=== PATIENT | male | born 1955 | race African-American/Black ===

== ENCOUNTER 2017-03-04 13:47 | Emergency (ER) | payer OTHER ==
[2017-03-04 13:47] VITALS: BP 138/80
[~2017-03-04 13:47] MED LIST: ASPI81TA9 PO; CYCL5TAB PO; HYDR-971 PO; LAMO100T PO; LISI-334 PO; PHEN100C PO; SIMV20TA3 PO
== END 2017-03-04 14:50 | disposition home or self-care (01) ==
LOC: ER 13:47
DX: J06.9 Acute upper respiratory infection, unspecified (principal)
CPT/HCPCS: 99281

== ENCOUNTER 2018-04-14 16:22 | Emergency (ER) | payer OTHER ==
[~2018-04-14] VITALS: Ht 167.6 cm; Wt 69.9 kg
[~2018-04-14 16:22] MED LIST changes: +ASPI-612 PO; -ASPI81TA9 PO
--- NOTE | 2018-04-14 18:17 | PHYS DOC ---
Past History Past Medical History: Seizure Past Surgical History: No Surgical History Smoking: Cigar Alcohol Use: Occasionally Drug Use: None Adult General Chief Complaint Chief Complaint: COUGH HPI HPI Patient is a 62 year old male who presents with complaint of persistent cough. Patient states his symptoms are approximately 2 days ago. Patient states that he has had productive cough of yellowish sputum. Patient denies any history of chronic lung disease or heart disease. The patient has had no associated fevers. Patient states that he has had slight chest discomfort only with coughing but states he has no chest pain at rest. Patient states he's been taking Zyrtec and Benadryl which has offered slight improvement in symptoms. Patient denies any shortness of breath currently at rest. Patient states that he primarily feels congestion in his upper airways at this time. Review of Systems Review of Systems Constitutional: Denies fever or chills [] Eyes: Denies change in visual acuity, redness, or eye pain [] HENT: Nasal congestion, sore throat[] Respiratory: Productive cough, denies shortness of breath[] Cardiovascular: Denies substernal chest pain or edema[] GI: Denies abdominal pain, nausea, vomiting, bloody stools or diarrhea [] : Denies dysuria or hematuria [] Musculoskeletal: Denies back pain or joint pain [] Integument: Denies rash or skin lesions [] Neurologic: Denies headache, focal weakness or sensory changes [] All other systems were reviewed and found to be within normal limits, except as documented in this note. Allergies Allergies Allergies Coded Allergies Type Severity Reaction Last Updated Verified No Known Drug Allergies 01/03/17 No Physical Exam Physical Exam Constitutional: Alert, afebrile, no acute distress. [] HENT: Normocephalic, atraumatic, bilateral external ears normal, oropharynx erythematous, posterior pharyngeal cobblestoning present, no oral exudates, boggy nasal mucosa. [] Eyes: PERRLA, EOMI, conjunctiva normal, no discharge. [] Neck: Normal range of motion, no tenderness, supple, no stridor. [] Cardiovascular:Heart rate regular rhythm, no murmur [] Lungs & Thorax: Bilateral breath sounds clear to auscultation [] Abdomen: Bowel sounds normal, soft, no tenderness, no masses, no pulsatile masses. [] Skin: Warm, dry, no erythema, no rash. [] Back: No tenderness, no CVA tenderness. [] Extremities: No tenderness, no cyanosis, no clubbing, ROM intact, no edema. [] Neurologic: Alert and oriented X 3, normal motor function, normal sensory function, no focal deficits noted. [] EKG EKG Interpreted by me: Heart rate 58, sinus rhythm, prolonged IN interval, right bundle branch block, no acute ST elevations or depressions[] Radiology/Procedures Radiology/Procedures Two-view chest x-ray interpreted by me: Small right lower lobe infiltrate, no effusions, normal cardiac silhouette[] Course & Med Decision Making Course & Med Decision Making Pertinent Labs and Imaging studies reviewed. (See chart for details) X-ray findings concerning for pneumonia. The patient will be started on oral Levaquin for treatment. Patient noted to have abnormal EKG, however patient displays no anginal equivalents at this time including substernal chest pain or shortness of breath. This is likely an old finding, however I do recommend that the patient be followed up in the next 2-3 days by cardiology for reevaluation and outpatient cardiac workup. Patient will be continued on 5 day course of Levaquin. Advised return emergency department for any worsening symptoms. Patient voiced understanding and in agreement with treatment plan. Dragon Disclaimer Dragon Disclaimer This electronic medical record was generated, in whole or in part, using a voice recognition dictation system. Departure Departure: Impression: Primary Impression: Pneumonia Additional Impression: Abnormal EKG Disposition: 01 HOME, SELF-CARE Condition: STABLE Referrals: ANTONIA SIMPSON MD (PCP) TODD CAMPOS MD Patient Instructions: Electrocardiography, [id number], Pneumonia, Adult Additional Instructions: Call the office of Dr. Campos tomorrow to schedule an appointment in the next 2-3 days for outpatient cardiac evaluation. You may use Flonase nasal spray which is available [id number] for treatment of chronic nasal congestion. Return to the emergency department for any worsening symptoms. Scripts Levofloxacin (LEVAQUIN) 750 Mg Tablet 1 TAB PO DAILY, #4 TAB Start your first dose tomorrow, 04/16/18, at dinner time. Prov: IDA DE LA CRUZ MD 04/14/18 Problem Qualifiers Primary Impression: Pneumonia Pneumonia type: due to unspecified organism Laterality: right Lung location : lower lobe of lung Qualified Codes: J18.1 - Lobar pneumonia, unspecified organism IDA DE LA CRUZ MD April 14, 2018 18:17
--- NOTE | 2018-04-14 18:40 | EKG ---
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
[2018-04-14 18:50] VITALS: BP 142/92
[2018-04-14] MEDS ORDERED: levoFLOXacin 750 MG TABLET PO STA (18:58)
[2018-04-14] MEDS ORDERED: LEVO750T31 PO (19:03)
--- NOTE | 2018-04-14 22:58 | RAD ---
PA and lateral chest radiographs 04/14/2018 CLINICAL HISTORY: Cough for 2 days. PA and lateral digital radiographs of the chest were obtained. Comparison study is dated 07/18/2013. The cardiac silhouette is normal in size. The thoracic aorta is mildly tortuous. No acute pulmonary infiltrate is seen. No pleural effusion or pneumothorax is noted. Degenerative changes are seen involving the thoracic spine. IMPRESSION: No acute abnormality is seen. Electronically signed by: Markell Dickson MD (04/14/2018 10:55 PM) [facility]
== END 2018-04-14 19:15 | disposition home or self-care (01) ==
LOC: ER 16:22
DX: J18.1 Lobar pneumonia, unspecified organism (principal); R94.31 Abnormal electrocardiogram [ECG] [EKG]; F17.210 Nicotine dependence, cigarettes, uncomplicated
CPT/HCPCS: 71046; 87070; 87880; 93005; 99285-25

== ENCOUNTER 2018-04-19 04:27 | Emergency (ER) | payer OTHER ==
[~2018-04-19] VITALS: Ht 170.2 cm; Wt 71.2 kg
[~2018-04-19 04:27] MED LIST changes: +LEVO750T31 PO
[2018-04-19] MEDS ORDERED: LORazepam 2 MG/ML VIAL ONE (04:40)
--- NOTE | 2018-04-19 04:40 | ED.ADGEN ---
Past History Past Medical History: High Cholesterol, Hypertension, Pneumonia, Seizure Past Surgical History: No Surgical History Smoking: Cigar Alcohol Use: Occasionally Drug Use: None Adult General Chief Complaint Chief Complaint " Pt. answer question with shaking head yes or no" (Pt normally a verbal post SZ) HPI HPI Patient is a 62 year old male who presents with above hx and complaints of Tonic Clonic seizure x 4 tonight. Pt has hx of seizure disorder and take s Dilantin. Patient has not had a seizure for 2 years. Patient reportedly compliant with his Dilantin usage. Patient reportedly received upsetting nose on a family member before onset of seizures. No recent travel. No history of ill contacts. Patient moves all extremities on command. Patient appears postictal. Patient moves all extremities on request. No complaints of pain. Pt. recently seen in ED 04/14/18 and Tx. for pneumonia. Pt. follow with Dr. Cain. Review of Systems Review of Systems Constitutional:Hx. of fever or chills [] Eyes: Denies change in visual acuity, redness, or eye pain [] HENT: Denies nasal congestion or sore throat [] Respiratory: Hx cough or shortness of breath [and pneumonia Cardiovascular: No additional information not addressed in HPI [] GI: Denies abdominal pain, nausea, vomiting, bloody stools or diarrhea [] : Denies dysuria or hematuria [] Musculoskeletal: Denies back pain or joint pain [] Integument: Denies rash or skin lesions [] Neurologic: Denies headache, focal weakness or sensory changes [] Endocrine: Denies polyuria or polydipsia [] All other systems were reviewed and found to be within normal limits, except as documented in this note. Family History Family History Noncontributory Current Medications Current Medications Current Medications Medications (Trade) Dose Ordered Sig/Smita Start Time Stop Time Status Last Admin Dose Admin Lactated Ringer's 1,000 ml @ 1,000 mls/hr Q1H 04/19/18 05:00 04/19/18 05:59 DC 04/19/18 04:59 1,000 MLS/HR Lorazepam (Ativan) 2 mg STK-MED ONCE 04/19/18 04:40 04/19/18 04:41 DC Phenytoin Sodium (Dilantin) 400 mg 1X ONCE 04/19/18 06:00 04/19/18 06:17 DC 04/19/18 06:03 400 MG See nursing for home meds Allergies Allergies Allergies Coded Allergies Type Severity Reaction Last Updated Verified No Known Drug Allergies 01/03/17 No Physical Exam Physical Exam Constitutional:, no acute distress, non-toxic appearance. [] HENT: Normocephalic, atraumatic, bilateral external ears normal, oropharynx moist, no oral exudates, nose normal. [] Eyes: PERRLA, EOMI, conjunctiva normal, no discharge. [] Neck: Normal range of motion, no tenderness, supple, no stridor. [] Cardiovascular. : Tachycardia Heart rate regular rhythm, no murmur [] Lungs & Thorax: Bilateral breath sounds equal apexes with crackles on bilateral. base on auscultation [] Abdomen: Bowel sounds normal, soft, no tenderness, no masses, no pulsatile masses. [] Skin: Warm, dry, no erythema, no rash. [] Back: No tenderness, no CVA tenderness. [] Extremities: No tenderness, no cyanosis, no clubbing, ROM intact, no edema. [] Neurologic: Alert and oriented X 3, normal motor function, normal sensory function, no focal deficits noted. []DTRs +2 patella and brachial Psychologic: Affect anxious, judgement normal, mood normal. [] Current Patient Data Vital Signs Vital Signs Date Time Temp Pulse Resp B/P (MAP) Pulse Ox O2 Delivery O2 Flow Rate FiO2 04/19/18 06:00 71 18 136/84 (101) 100 Room Air 04/19/18 04:30 99.0 Lab Results Laboratory Tests Test 04/19/18 04:45 White Blood Count 4.0 x10^3/uL (4.0-11.0) Red Blood Count 4.49 x10^6/uL (4.30-5.70) Hemoglobin 14.2 g/dL (13.0-17.5) Hematocrit 40.9 % (39.0-53.0) Mean Corpuscular Volume 91 fL (79-100) Mean Corpuscular Hemoglobin 32 pg (25-35) Mean Corpuscular Hemoglobin Concent 35 g/dL (31-37) Red Cell Distribution Width 13.9 % (11.5-14.5) Platelet Count 298 x10^3/uL (140-400) Neutrophils (%) (Auto) 46 % (31-73) Lymphocytes (%) (Auto) 31 % (24-48) Monocytes (%) (Auto) 19 % (0-9) H Eosinophils (%) (Auto) 3 % (0-3) Basophils (%) (Auto) 1 % (0-3) Neutrophils # (Auto) 1.8 x10^3uL (1.8-7.7) Lymphocytes # (Auto) 1.3 x10^3/uL (1.0-4.8) Monocytes # (Auto) 0.8 x10^3/uL (0.0-1.1) Eosinophils # (Auto) 0.1 x10^3/uL (0.0-0.7) Basophils # (Auto) 0.0 x10^3/uL (0.0-0.2) Segmented Neutrophils % 45 % (35-66) Band Neutrophils % 2 % (0-9) Lymphocytes % 35 % (24-48) Monocytes % 17 % (0-10) H Eosinophils % 1 % (0-5) Platelet Estimate Adequate (ADEQUATE) Prothrombin Time 10.7 SEC (9.4-11.4) Prothrombin Time INR 1.0 (0.9-1.1) PTT 22 SEC (23-33) L D-Dimer (Zonia) 0.33 mg/L (0.00-0.50) Sodium Level 140 mmol/L (136-145) Potassium Level 3.8 mmol/L (3.5-5.1) Chloride Level 103 mmol/L (98-107) Carbon Dioxide Level 23 mmol/L (21-32) Anion Gap 14 (6-14) Blood Urea Nitrogen 20 mg/dL (8-26) Creatinine 1.1 mg/dL (0.7-1.3) Estimated GFR (Cockcroft-Gault) 82.3 Glucose Level 140 mg/dL (70-99) H Calcium Level 8.5 mg/dL (8.5-10.1) Magnesium Level 2.0 mg/dL (1.8-2.4) Total Bilirubin 0.2 mg/dL (0.2-1.0) Direct Bilirubin 0.1 mg/dL (0.0-0.2) Aspartate Amino Transferase (AST) 34 U/L (15-37) Alanine Aminotransferase (ALT) 52 U/L (16-63) Alkaline Phosphatase 115 U/L (46-116) Creatine Kinase 182 U/L (39-308) Creatine Kinase MB (Mass) 1.4 ng/mL (0.0-3.6) Creatine Kinase MB Relative Index 0.8 % (0-4) Troponin I Quantitative < 0.017 ng/mL (0-0.055) ZC-Fno-R-Type Natriuretic Peptide 28 pg/mL (0-124) Total Protein 7.0 g/dL (6.4-8.2) Albumin 3.5 g/dL (3.4-5.0) Thyroid Stimulating Hormone (TSH) 1.623 uIU/mL (0.358-3.740) Phenytoin (Dilantin) Level 8.2 mcg/mL (10.0-20.0) L Phenytoin Last Dose Date 10/05/11 Phenytoin Last Dose Time 1111 Ethyl Alcohol Level < 10 mg/dL (0-10) EKG EKG My interpretation of EKG shows a sinus rhythm at 80 bpm. He does have frequent premature ventricular complexes. His left axis deviation and a fascicular block. [] Radiology/Procedures Radiology/Procedures My interpretation of x-ray shows no large infiltrate. No acute cardiopulmonary findings.[] My interpretation of CT head shows no shift, mass, edema, bleed, or fracture Course & Med Decision Making Course & Med Decision Making Pertinent Labs and Imaging studies reviewed. (See chart for details). Pt. used to take 400 of Dilantin , but reduced dosages to 300. Pt. to again increase Dilantin to 400 mg at night. Patient return if any concerns. is comfortable with discharge patient is comfortable discharge. No driving or hazardous activity until released by primary care. Keep follow up with primary and neurology. Review all labs, ekgs and x-rays completed this visit with neurology and primary. Return if any concerns. [] Final Impression Final Impression 1. Tonic-clonic seizure 2. History of seizure disorder[] 3. HTN 4. Recent Dx Pneumonia 04/14/18 5. Fever- Suspect Viral Syndrome 6. Sub-Therapeutic Dilantin level Dragon Disclaimer Dragon Disclaimer This electronic medical record was generated, in whole or in part, using a voice recognition dictation system. JUAN GIRALDO MD April 19, 2018 04:39
[2018-04-19] MEDS ORDERED: LORazepam 2 MG/ML VIAL IV ONE (05:00)
[2018-04-19] MEDS ORDERED: IV RINGERS SOLUTION,LACTATED 1,000 ML IV SCH (05:00)
[2018-04-19 05:08] LABS: BASO % 1 % (0-3); EOS # 0.1 x10^3/uL (0.0-0.7); EOS % 3 % (0-3); HEMATOCRIT 40.9 % (39.0-53.0); HEMOGLOBIN 14.2 g/dL (13.0-17.5); LYMPH # 1.3 x10^3/uL (1.0-4.8); LYMPH % 31 % (24-48); MEAN CORPUSCULAR HEMOGLOBIN 32 pg (25-35); MEAN CORPUSCULAR HGB CONC 35 g/dL (31-37); MEAN CORPUSCULAR VOLUME 91 fL (79-100); MONO # 0.8 x10^3/uL (0.0-1.1); MONO % 19 % (0-9); NEUT # 1.8 x10^3uL (1.8-7.7); NEUT % 46 % (31-73); PLATELET COUNT 298 x10^3/uL (140-400); RED BLOOD COUNT 4.49 x10^6/uL (4.30-5.70); RED CELL DISTRIBUTION WIDTH 13.9 % (11.5-14.5)
--- NOTE | 2018-04-19 05:17 | RAD ---
CT head without contrast TECHNIQUE: [address] imaging skull base to vertex. HISTORY: Seizures. COMPARISON: CT head November 13, 2014. FINDINGS: No intracranial hemorrhage, mass, hydrocephalus, extra-axial fluid collections or new infarction. Chronic right thalamus and basal ganglia hypodense small lacunar infarcts are stable. No acute ischemic changes. Occipital scalp linear scar stable. Orbits, mastoids and bones are unremarkable. IMPRESSION: No acute intracranial CT abnormality. Exposure: One or more of the following individualized dose reduction techniques were utilized for this examination: 1. Automated exposure control 2. Adjustment of the mA and/or kV according to patient size 3. Use of iterative reconstruction technique Electronically signed by: Gary Boston MD (04/19/2018 5:13 AM) [id number]
[2018-04-19 05:22] LABS: ALBUMIN 3.5 g/dL (3.4-5.0); ALK PHOS 115 U/L (46-116); ALT (SGPT) 52 U/L (16-63); ANION GAP 14 (6-14); AST (SGOT) 34 U/L (15-37); BLOOD UREA NITROGEN 20 mg/dL (8-26); CALCIUM 8.5 mg/dL (8.5-10.1); CARBON DIOXIDE 23 mmol/L (21-32); CHLORIDE 103 mmol/L (98-107); CREATININE 1.1 mg/dL (0.7-1.3); DIRECT BILIRUBIN 0.1 mg/dL (0.0-0.2); GFR 82.3; GLUCOSE 140 mg/dL (70-99); PHENY 8.2 mcg/mL (10.0-20.0); POTASSIUM 3.8 mmol/L (3.5-5.1); SODIUM 140 mmol/L (136-145); TOTAL BILIRUBIN 0.2 mg/dL (0.2-1.0)
[2018-04-19 05:53] LABS: % BANDS 2 % (0-9); % EOS 1 % (0-5); % LYMPHS 35 % (24-48); % MONOS 17 % (0-10); % SEGS 45 % (35-66); PLT ESTIMATE ADEQUATE (ADEQUATE)
[2018-04-19 06:00] VITALS: BP 136/84
[2018-04-19] MEDS ORDERED: PHENYTOIN SODIUM EXTENDED 100 MG CAPSULE PO ONE (06:00)
--- NOTE | 2018-04-19 06:36 | RAD ---
AP chest x-ray COMPARISON: Chest x-ray April 14, 2018. HISTORY: Seizures. FINDINGS: Heart size normal. Tortuosity/ectasia of the thoracic aorta is radiographically stable. No pneumothorax, pulmonary opacities or pleural effusions. Resting disc osteophytes. IMPRESSION: No acute process. Stable exam. Electronically signed by: Gary Boston MD (04/19/2018 6:33 AM) [facility]
== END 2018-04-19 06:08 | disposition home or self-care (01) ==
LOC: ER 04:27
DX: G40.909 Epilepsy, unspecified, not intractable, without status epilepticus (principal); I10 Essential (primary) hypertension; E78.00 Pure hypercholesterolemia, unspecified; F17.210 Nicotine dependence, cigarettes, uncomplicated; R79.1 Abnormal coagulation profile
CPT/HCPCS: 36415; 70450; 71045; 80048; 80076; 80185; 82553; 83735; 83880; 84443; 84484; 85007; 85025; 85379; 85610; 85730; 87040; 99285; G0480; J2060; J7120

== ENCOUNTER 2019-03-18 07:38 | Emergency (ER) | payer OTHER ==
[~2019-03-18] VITALS: Ht 170.2 cm; Wt 68.0 kg
[~2019-03-18 07:38] MED LIST changes: +HYDR-3165 PO; -HYDR-971 PO
[2019-03-18] MEDS ORDERED: LIDOCAINE 2% VISCOUS 15 ML SOLUTION. SWSW ONE (08:00)
[2019-03-18] MEDS ORDERED: diphenhydrAMINE ORAL ELIXIR 12.5 MG/5 ML ML PO ONE ×2 (08:00→08:30)
[2019-03-18] MEDS ORDERED: MAG HYDROX/AL HYDROX/SIMETH 30 ML ORAL.SUSP PO ONE (08:00)
[2019-03-18] MEDS ORDERED: AMOX500C PO (08:21)
[2019-03-18] MEDS ORDERED: PRED50TA PO (08:21)
--- NOTE | 2019-03-18 08:22 | PHYS DOC ---
Past History Past Medical History: High Cholesterol, Hypertension, Seizure Past Surgical History: Other Smoking: Cigar Additional Smoking Information: 4 CIGARS/DAY Alcohol Use: Occasionally Drug Use: None Adult General Chief Complaint Chief Complaint: SORE THROAT HPI HPI Patient is a 63-year-old male presents with worsening sore throat after eating a hot pot pie 2 days ago. Notes these had some fever and chills last night. Worse on the right side. Increased pain with swallowing. No relief with home medication. Discomfort is moderate to severe in intensity.[] Review of Systems Review of Systems Constitutional: See history of present illness[] Eyes: Denies change in visual acuity, redness, or eye pain [] HENT: Denies nasal congestion, see history of present illness[] Respiratory: Denies cough or shortness of breath [] Cardiovascular: No chest pain or palpitations[] GI: Denies abdominal pain, nausea, vomiting, bloody stools or diarrhea [] : Denies dysuria or hematuria [] Musculoskeletal: Denies back pain or joint pain [] Integument: Denies rash or skin lesions [] Neurologic: Denies headache, focal weakness or sensory changes [] Endocrine: Denies polyuria or polydipsia [] All other systems were reviewed and found to be within normal limits, except as documented in this note. Current Medications Current Medications Current Medications Medications (Trade) Dose Ordered Sig/Smita Start Time Stop Time Status Last Admin Dose Admin Al Hydroxide/Mg Hydroxide (Mylanta Plus Xs) 30 ml 1X ONCE 03/18/19 08:00 4 08:01 DC Diphenhydramine HCl (Benadryl Oral Elixir) 25 mg 1X ONCE 03/18/19 08:00 03/18/19 08:01 DC Lidocaine HCl (Viscous Lidocaine) 15 ml 1X ONCE 03/18/19 08:00 03/18/19 08:01 DC Allergies Allergies Allergies Coded Allergies Type Severity Reaction Last Updated Verified No Known Drug Allergies 01/03/17 No Physical Exam Physical Exam Constitutional: Well developed, well nourished, no acute distress, non-toxic appearance. [] HENT: Normocephalic, atraumatic, bilateral external ears normal, oropharynx moist, enlarged right sided tonsil, uvula midline, exudate is present on the tonsils,, nose normal. [] Eyes: PERRLA, EOMI, conjunctiva normal, no discharge. [] Neck: Normal range of motion, no tenderness, supple, no stridor. Anterior chain cervical lymphadenopathy [] Cardiovascular:Heart rate regular rhythm, no murmur [] Lungs & Thorax: Bilateral breath sounds clear to auscultation [] Abdomen: Bowel sounds normal, soft, no tenderness, no masses, no pulsatile masses. No hepato-or splenomegaly [] Skin: Warm, dry, no erythema, no rash. [] Back: No tenderness, no CVA tenderness. [] Extremities: No tenderness, no cyanosis, no clubbing, ROM intact, no edema. [] Neurologic: Alert and oriented X 3, normal motor function, normal sensory function, no focal deficits noted. [] Psychologic: Affect normal, judgement normal, mood normal. [] Current Patient Data Vital Signs Vital Signs Date Time Temp Pulse Resp B/P (MAP) Pulse Ox O2 Delivery O2 Flow Rate FiO2 03/18/19 07:45 98.9 66 20 98 Room Air EKG EKG [] Radiology/Procedures Radiology/Procedures [] Course & Med Decision Making Course & Med Decision Making Pertinent Labs and Imaging studies reviewed. (See chart for details) Medical decision making: There is no evidence of airway or esophageal obstruction. This appears to be pharyngitis, no evidence of peritonsillar abscess at this time. No evidence of meningitis or encephalitis.[] Dragon Disclaimer Dragon Disclaimer This electronic medical record was generated, in whole or in part, using a voice recognition dictation system. Departure Departure: Impression: Primary Impression: Exudative pharyngitis Disposition: HOME, SELF-CARE Condition: IMPROVED Referrals: ANTONIA SIMPSON MD (PCP) Follow-up within 2 days Patient Instructions: Viral and Bacterial Pharyngitis Additional Instructions: Drink plenty of fluids. Follow-up with your regular doctor. Return to the ER if worsening difficulty swallowing, or any other concerns. Scripts Prednisone (PREDNISONE) 50 Mg Tablet 1 TAB PO DAILY for INFLAMMATION, #5 TAB Prov: NAOMIE SIMON DO 03/18/19 Amoxicillin (AMOXICILLIN) 500 Mg Capsule 1 CAP PO TID for PHARYNGITIS, #30 CAP Prov: NAOMIE SIMON DO 03/18/19 NAOMIE SIMON DO Mar 18, 2019 08:22
[2019-03-18] MEDS ORDERED: LIDO:MAALOX 1:1 20 ML SINGLE DOSE. PO PRN (08:30)
[2019-03-18 08:50] VITALS: BP 146/82
== END 2019-03-18 08:50 | disposition home or self-care (01) ==
LOC: ER 07:38
DX: J02.9 Acute pharyngitis, unspecified (principal); E78.00 Pure hypercholesterolemia, unspecified; I10 Essential (primary) hypertension; F17.210 Nicotine dependence, cigarettes, uncomplicated
CPT/HCPCS: 99283

== ENCOUNTER 2021-01-11 11:36 | Emergency (ER) | payer OTHER ==
[~2021-01-11] VITALS: Ht 170.2 cm; Wt 73.0 kg
[~2021-01-11 11:36] MED LIST changes: +AMOX500C PO; -ASPI-612 PO; +ASPI-889 PO; -LAMO100T PO; +LAMO100T8 PO; -LISI-334 PO; +LISI20TA18 PO; +PRED50TA PO; +SIMV20TA18 PO; -SIMV20TA3 PO
[2021-01-11 11:40] VITALS: BP 134/82
[2021-01-11] MEDS ORDERED: KETOROLAC 15 MG/ML VIAL. IM ONE (12:45)
[2021-01-11] MEDS ORDERED: IOHEXOL 300 MG/ML 75 ML VIAL. IV ONE (12:45)
[2021-01-11] MEDS ORDERED: CYCLOBENZAPRINE 10 MG TABLET. PO ONE (12:45)
--- NOTE | 2021-01-11 12:45 | PHYS DOC ---
Past History Past Medical History: High Cholesterol, Hypertension, Seizure Past Surgical History: Other Smoking: Cigar Alcohol Use: Occasionally Drug Use: None General Adult EDM: Chief Complaint: Neck Pain HPI: HPI: Patient is a 65-year-old male who presents with left-sided neck pain and headache for 2 weeks. Patient denies any trauma or injury. Patient states that pain is worse at night when he lays down and better when he is up moving. Patient has full range of motion of neck. Patient denies dizziness. Patient reports taking Aleve at home with little relief. Patient has history of hypertension, high cholesterol, seizures. Review of Systems: Review of Systems: Constitutional: Denies fever or chills Eyes: Denies change in visual acuity HENT: Denies nasal congestion or sore throat Respiratory: Denies cough or shortness of breath Cardiovascular: Denies chest pain or edema GI: Denies abdominal pain, nausea, vomiting, bloody stools or diarrhea : Denies dysuria Musculoskeletal: Reports neck pain, denies joint pain Integument: Denies rash Neurologic: Reports headache, denies focal weakness or sensory changes Endocrine: Denies polyuria or polydipsia Lymphatic: Denies swollen glands Psychiatric: Denies depression or anxiety Current Medications: Current Meds: Current Medications Medications (Trade) Dose Ordered Sig/Smita Start Time Stop Time Status Last Admin Dose Admin Cyclobenzaprine HCl (Flexeril) 10 mg 1X ONCE 01/11/21 12:45 01/11/21 12:46 UNV Ketorolac Tromethamine (Toradol 15mg Vial) 15 mg 1X ONCE 01/11/21 12:45 01/11/21 12:46 UNV Allergies: Allergies: Allergies Coded Allergies Type Severity Reaction Last Updated Verified No Known Drug Allergies 01/03/17 No Physical Exam: PE: Constitutional: Well developed, well nourished, no acute distress, non-toxic appearance. [] HENT: Normocephalic, atraumatic, bilateral external ears normal, oropharynx moist, no oral exudates, nose normal. [] Eyes: PERRLA, EOMI, conjunctiva normal, no discharge. [] Neck: Normal range of motion, left-sided neck tenderness Cardiovascular:Heart rate regular rhythm, no murmur [] Lungs & Thorax: Bilateral breath sounds clear to auscultation [] Abdomen: Bowel sounds normal, soft, no tenderness, no masses, no pulsatile masses. [] Skin: Warm, dry, no erythema, no rash. [] Back: No tenderness, no CVA tenderness. [] Extremities: No tenderness, no cyanosis, no clubbing, ROM intact, no edema. [] Neurologic: Alert and oriented X 3, normal motor function, normal sensory function, no focal deficits noted. [] Psychologic: Affect normal, judgement normal, mood normal. [] Current Patient Data: Vital Signs: Vital Signs Date Time Temp Pulse Resp B/P (MAP) Pulse Ox O2 Delivery O2 Flow Rate FiO2 01/11/21 11:40 97.7 85 16 134/82 (99) 98 Room Air EKG: EKG: [] Radiology/Procedures: Radiology/Procedures: []EXAM: CT Head without IV contrast INDICATION: Reason: HEAD AND NECK PAIN / Spl. Instructions: / History: TECHNIQUE: Multi-detector row CT images were obtained of the head without the use of IV contrast. All CT scans performed at this facility utilize dose optimization techniques as appropriate to the exam, including the following: Automated exposure control and adjustment of the mA and/or KV according to patient size (this includes techniques or standardized protocols for targeted exams where dose is indication/reason for exam). COMPARISON: None FINDINGS: BRAIN PARENCHYMA: No evidence of acute intraparenchymal hemorrhage or infarct. No abnormal parenchymal density or mass. VENTRICLES & EXTRA-AXIAL SPACES: Ventricles are within normal limits. Basilar cisterns are patent. No pathologic extra-axial fluid collection or mass. ORBITS: Orbital contents are unremarkable. SINUSES: Visualized paranasal sinuses and mastoid air cells are clear. OSSEOUS & SOFT TISSUES: Calvarium and skull base are intact. IMPRESSION: No acute intracranial pathology. Mild soft tissue stranding in the scalp posteriorly EXAM: CT Neck with IV contrast INDICATION: Reason: HEAD AND NECK PAIN / Spl. Instructions: / History: TECHNIQUE: Multiple contiguous axial images were obtained of the neck with the use of IV contrast. Post-processing reconstructed images were obtained for interpretation. All CT scans performed at this facility utilize dose optimization techniques as appropriate to the exam, including the following: Automated exposure control and adjustment of the mA and/or KV according to patient size (this includes techniques or standardized protocols for targeted exams where dose is indication/reason for exam). IV CONTRAST: Administered COMPARISON: None FINDINGS: INTRACRANIAL STRUCTURES & ORBITS: Unremarkable. AERODIGESTIVE: The nasal cavity, nasopharynx, oral cavity, oropharynx, hypopharynx, larynx, and visualized trachea and esophagus demonstrate no masses or abnormal enhancement. CERVICAL LYMPH NODES & SOFT TISSUES: No adenopathy, soft tissue mass, or fluid collection. THYROID & SALIVARY GLANDS: Unremarkable. LUNG APICES: Clear. OSSEOUS: Disc degenerative changes at C4-C5, C5-C6 and C6-C7 are present along with lesser degenerative changes at C7-T1. Mild facet hypertrophic changes on the right at C3-C4 present. IMPRESSION: Cervical spinal degenerative changes. Otherwise unremarkable CT of the neck with no mass or adenopathy is shown. Electronically signed by: Noel Francisco MD (01/11/2021 1:24 PM) [id number] Heart Score: Risk Factors: Risk Factors: DM, Current or recent (<one month) smoker, HTN, HLP, family history of CAD, obesity. Risk Scores: Score 0 - 3: 2.5% MACE over next 6 weeks - Discharge Home Score 4 - 6: 20.3% MACE over next 6 weeks - Admit for Clinical Observation Score 7 - 10: 72.7% MACE over next 6 weeks - Early Invasive Strategies Course & Med Decision Making: Course & Med Decision Making Pertinent Labs and Imaging studies reviewed. (See chart for details) []Patient is a 65-year-old male who presents with left-sided neck pain and headache for 2 weeks. Patient denies any trauma or injury. Patient states that pain is worse at night when he lays down and better when he is up moving. Patient has full range of motion of neck. Patient denies dizziness. Patient reports taking Aleve at home with little relief. Patient has history of hypertension, high cholesterol, seizures. CT head shows No acute intracranial pathology.Mild soft tissue stranding in the scalp posteriorly.Cervical spinal degenerative changes. Otherwise unremarkable CT of the neck with no mass or adenopathy is shown. Flexeril and Toradol given Patient most likely has a muscle strain. Ibuprofen, flexeril, ice for discomfort. Dragon Disclaimer: Dragon Disclaimer: This electronic medical record was generated, in whole or in part, using a voice recognition dictation system. Departure Departure: Impression: Primary Impression: Neck muscle strain Qualified Codes: S16.1XXA - Strain of muscle, fascia and tendon at neck level, initial encounter Disposition: 01 DC HOME SELF CARE/HOMELESS Condition: STABLE Referrals: LEW BERNARDO (PCP) Patient Instructions: Muscle Strain, [id number] Additional Instructions: You were seen in the emergency room today for neck pain. The CT of your head and neck was negative for any acute abnormalities. You most likely have the muscle strain. I have prescribed you Flexeril which is a muscle relaxer to take at home. You may also take ibuprofen for discomfort. Return to the emergency room with worsening symptoms or concerns otherwise follow-up with your PCP if symptoms do not resolve. EMERGENCY DEPARTMENT GENERAL DISCHARGE INSTRUCTIONS Thank you for coming to [facility] (ED) today and trusting us with you care. We trust that you had a positivie experience in our Emergency Department. If you wish to speak to the department management, you may call the director at [phone]. YOUR FOLLOW UP INSTRUCTIONS ARE FOLLOWS: 1. Do you have a private Doctor? If you do not have a private doctor, please ask for a resource list of physicians or clinics that may be able to assist you with follow up care. 2. The Emergency Physician has interpreted your x-rays. The X-Ray specialist will also review them. If there is a change in the findings, you will be notified in 48 hours when at all possible. 3. A lab test or culture has been done, your results will be reviewed and you will be notified if you need a change in treatment. ADDITIONAL INSTRUCTIONS AND INFORMATION: 1. Your care today has been supervised by a physician who is specially trained in emergency care. Many problems require more than one evaluation for a complete diagnosis and treatment. We recommend that you schedule your follow up appointment as recommended to ensure complete treatment of you illness or injury. If you are unable to obtain follow up care and continue to have a problem, or if your condition worsens, we recommend that you return to the ED. 2. We are not able to safely determine your condition over the phone nor are we able to give sound medical advice over the phone. For these safety reasons, if you call for medical advice we will ask you to come to the ED for further evaluation. 3. If you have any questions regarding these discharge instructions please call the ED at [phone]. SAFETY INFORMATION: In the interest of safety, wellness, and injury prevention; we encourage you to wear your sealbelt, if you smoke; quite smoking, and we encourage family to use a protective helmet for bicycling and other sporting events that present an increased risk for head injury. IF YOUR SYMPTOMS WORSEN OR NEW SYMPTOMS DEVELOP, OR YOU HAVE CONCERNS ABOUT YOUR CONDITION; OR IF YOUR CONDITION WORSENS WHILE YOU ARE WAITING FOR YOUR FOLLOW UP JACEY OINTMENT; EITHER CONTACT YOUR PRIMARY CARE DOCTOR, THE PHYSICIAN WHOSE NAME AND NUMBER YOU WERE GIVEN, OR RETURN TO THE ED IMMEDIATELY. Scripts Cyclobenzaprine Hcl (CYCLOBENZAPRINE HCL) 10 Mg Tablet 1 TAB PO TID PRN PRN for PAIN, #12 TAB Prov: PERRI WOOD APRN 01/11/21 PERRI WOOD APRN Jan 11, 2021 12:45
--- NOTE | 2021-01-11 13:26 | RAD ---
EXAM: CT Head without IV contrast INDICATION: Reason: HEAD AND NECK PAIN / Spl. Instructions: / History: TECHNIQUE: Multi-detector row CT images were obtained of the head without the use of IV contrast. All CT scans performed at this facility utilize dose optimization techniques as appropriate to the exam, including the following: Automated exposure control and adjustment of the mA and/or KV according to patient size (this includes techniques or standardized protocols for targeted exams where dose is ind ication/reason for exam). COMPARISON: None FINDINGS: BRAIN PARENCHYMA: No evidence of acute intraparenchymal hemorrhage or infarct. No abnormal parenchyma l density or mass. VENTRICLES & EXTRA-AXIAL SPACES: Ventricles are within normal limits. Basilar cisterns are patent. N o pathologic extra-axial fluid collection or mass. ORBITS: Orbital contents are unremarkable. SINUSES: Visualized paranasal sinuses and mastoid air cells are clear. OSSEOUS & SOFT TISSUES: Calvarium and skull base are intact. IMPRESSION: No acute intracranial pathology. Mild soft tissue stranding in the scalp posteriorly EXAM: CT Neck with IV contrast INDICATION: Reason: HEAD AND NECK PAIN / Spl. Instructions: / History: TECHNIQUE: Multiple contiguous axial images were obtained of the neck with the use of IV contrast. Po st-processing reconstructed images were obtained for interpretation. All CT scans performed at this [facility] utilize dose optimization techniques as appropriate to the exam, including the following: Aut omated exposure control and adjustment of the mA and/or KV according to patient size (this includes t echniques or standardized protocols for targeted exams where dose is indication/reason for exam). IV CONTRAST: Administered COMPARISON: None FINDINGS: INTRACRANIAL STRUCTURES & ORBITS: Unremarkable. AERODIGESTIVE: The nasal cavity, nasopharynx, oral cavity, oropharynx, hypopharynx, larynx, and visu alized trachea and esophagus demonstrate no masses or abnormal enhancement. CERVICAL LYMPH NODES & SOFT TISSUES: No adenopathy, soft tissue mass, or fluid collection. THYROID & SALIVARY GLANDS: Unremarkable. LUNG APICES: Clear. OSSEOUS: Disc degenerative changes at C4-C5, C5-C6 and C6-C7 are present along with lesser degenerat makeda changes at C7-T1. Mild facet hypertrophic changes on the right at C3-C4 present. IMPRESSION: Cervical spinal degenerative changes. Otherwise unremarkable CT of the neck with no mass or adenopath y is shown. Electronically signed by: Noel Francisco MD (01/11/2021 1:24 PM) [id number]
[2021-01-11] MEDS ORDERED: CYCL-331 PO (13:44)
== END 2021-01-11 14:14 | disposition home or self-care (01) ==
LOC: ER 11:36
DX: S16.1XXA Strain of muscle, fascia and tendon at neck level, initial encounter (principal); R51.9 Headache, unspecified; E78.00 Pure hypercholesterolemia, unspecified; I10 Essential (primary) hypertension; F17.210 Nicotine dependence, cigarettes, uncomplicated; X58.XXXA Exposure to other specified factors, initial encounter; Y93.89 Activity, other specified; Y92.89 Other specified places as the place of occurrence of the external cause; Y99.8 Other external cause status
CPT/HCPCS: 70450; 70491; 96372; 99285; J1885; Q9967

== ENCOUNTER → 2021-02-12 | Outpatient (CLI) | payer OTHER ==
[~2021-02-12] MED LIST changes: +CYCL-331 PO
--- NOTE | 2021-02-12 10:46 | RAD ---
XR ELBOW COMPLETE_LEFT 3+VIEWS History: Reason: Left elbow injury 1 month ago, pain worse with stiffness / Spl. Instructions: / His tory: Technique: 3 views left elbow. Comparison: None. Findings: Normal alignment. No fracture. No significant elbow joint effusion. Well-corticated ossifications adj acent to the medial humeral epicondyle, likely related to prior trauma or degenerative changes. Impression: 1. No acute osseous abnormality. 2. Well-corticated ossifications adjacent to the medial humeral condyle, may relate to prior trauma or degenerative changes. Electronically signed by: Sean Pascual DO (02/12/2021 10:44 AM) [id number]
== END ==
LOC: DXRAD 10:25
PROVIDERS: ATTEND Physician Assistant Medical
DX: S59.902A Unspecified injury of left elbow, initial encounter (principal); X58.XXXA Exposure to other specified factors, initial encounter; Y93.89 Activity, other specified; Y92.89 Other specified places as the place of occurrence of the external cause; Y99.8 Other external cause status
CPT/HCPCS: 73080

== ENCOUNTER 2022-01-22 11:57 | Emergency (ER) | payer OTHER ==
[~2022-01-22] VITALS: Ht 170.2 cm; Wt 72.2 kg
[~2022-01-22 11:57] MED LIST changes: -CYCL-331 PO; +CYCL10TA19 PO
--- NOTE | 2022-01-22 12:39 | RAD ---
Exam: XR SHOULDER_RIGHT 2+ VIEWS History: Pain. No trauma. Comparison: None. Findings: Osseous mineralization is normal. No acute fracture or dislocaton. Mild glenohumeral and acromioclavi cular joint degenerative changes. Soft tissues are unremarkable. Impression: 1. Mild degenerative changes of the right shoulder without acute osseous abnormality. Electronically signed by: Rene Eckert MD (01/22/2022 12:37 PM) [id number]
[2022-01-22] MEDS ORDERED: MELO15TA23 PO (13:13)
[2022-01-22] MEDS ORDERED: HYDR-2155 PO (13:13)
--- NOTE | 2022-01-22 13:13 | PHYS DOC ---
Past History Past Medical History: High Cholesterol, Hypertension, Seizure Past Surgical History: Other Additional Past Surgical Histo: LEFT ROTATOR Smoking: Cigar Additional Smoking Information: CIGARS Alcohol Use: Occasionally Drug Use: None General Adult EDM: Chief Complaint: SHOULDER INJURY HPI: HPI: Patient is a 66-year-old male coming in for 2 months of worsening right shoulder pain. Patient states the pain. 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 Denies any recent trauma or falls. Patient states he has a history of a rotator cuff repair on the left shoulder, but states this feels differently. Denies any fever chills or systemic complaints. Review of Systems: Review of Systems: All other systems within normal limits except for as noted in the HPI Allergies: Allergies: Allergies Coded Allergies Type Severity Reaction Last Updated Verified No Known Drug Allergies 01/03/17 No Physical Exam: PE: Constitutional: Well developed, well nourished, no acute distress, non-toxic a ppearance. [] HENT: Normocephalic, atraumatic, bilateral external ears normal, nose normal. [] Eyes: PERRLA, conjunctiva normal, no discharge. [] Neck: No rigidity, supple, no stridor. [] Cardiovascular: Regular rate and rhythm, brisk cap refill [] Lungs & Thorax: Non labored symmetric respirations, no tachypnea or respiratory distress [] Abdomen: Soft, nondistended. Skin: Warm, dry, no erythema, no rash. [] Back: Unremarkable Extremities: No deformities, range of motion grossly intact, no lower extremity edema. Right shoulder: No effusion, no erythema or warmth. Pain with passive and active abduction, point tenderness over bursa. Supraspinatus test does not cause pain no rotator cuff muscles and is not weak, causes pain over the bursa. Positive Olvera test [] Neurologic: Alert and oriented X 3, no focal deficits noted. [] Psychologic: Affect normal, judgement normal, mood normal. [] Current Patient Data: Vital Signs: Vital Signs Date Time Temp Pulse Resp B/P (MAP) Pulse Ox O2 Delivery O2 Flow Rate FiO2 01/22/22 12:05 98.6 83 20 124/80 (95) 100 Room Air EKG: EKG: [] Radiology/Procedures: Radiology/Procedures: [address] [address] IMAGING REPORT Signed PATIENT: BRETT DOMINGO ACCOUNT: [id number] : 1955 LOCATION: ER AGE: 66 SEX: M EXAM STATUS: REG ER ORD. PHYSICIAN: RYLAND NGUYEN MD REASON: pain with movement, no trauma PROCEDURE: SHOULDER 2+V RIGHT Exam: XR SHOULDER_RIGHT 2+ VIEWS History: Pain. No trauma. Comparison: None. Findings: Osseous mineralization is normal. No acute fracture or dislocaton. Mild glenohumeral and acromioclavicular joint degenerative changes. Soft tissues are unremarkable. Impression: 1. Mild degenerative changes of the right shoulder without acute osseous abnormality. Electronically signed by: Rene Denson MD (01/22/2022 12:37 PM) [id number] DICTATED AND SIGNED BY: RENE DENSON MD DATE: 01/22/22 1236 CC: RYLAND NGUYEN MD; LEW BERNARDO ~MTH0 0 [] Heart Score: C/O Chest Pain: No Risk Factors: Risk Factors: DM, Current or recent (<one month) smoker, HTN, HLP, family history of CAD, obesity. Risk Scores: Score 0 - 3: 2.5% MACE over next 6 weeks - Discharge Home Score 4 - 6: 20.3% MACE over next 6 weeks - Admit for Clinical Observation Score 7 - 10: 72.7% MACE over next 6 weeks - Early Invasive Strategies Course & Med Decision Making: Course & Med Decision Making Pertinent Labs and Imaging studies reviewed. (See chart for details) [] Dragon Disclaimer: Dragon Disclaimer: This electronic medical record was generated, in whole or in part, using a voice recognition dictation system. Departure Departure: Impression: Primary Impression: Subacromial bursitis of right shoulder joint Disposition: HOME / SELF CARE / HOMELESS Condition: STABLE Referrals: LEW BERNARDO (PCP) Patient Instructions: RICE - Routine Care for Injuries Additional Instructions: Apply ice to right shoulder 3-4 times a day for 10 to 15 minutes Rest right shoulder and avoid lifting objects overhead. Scripts Hydrocodone Bit/Acetaminophen (HYDROCODONE-APAP 5-325 ) 1 Each Tablet 1 TAB PO PRN Q6HRS PRN for PAIN for 5 Days, #15 TAB 0 Refills Prov: RYLAND NGUYEN MD 01/22/22 Meloxicam (MELOXICAM) 15 Mg Tablet 1 TAB PO DAILY for pain for 30 Days, #30 TAB 0 Refills Prov: RYLAND NGUYEN MD 01/22/22 RYLAND NGUYEN MD Jan 22, 2022 13:13
[2022-01-22] MEDS ORDERED: KETOROLAC 60 MG/2 ML VIAL. IM ONE (13:15)
== END 2022-01-22 13:30 | disposition home or self-care (01) ==
LOC: ER 11:57
DX: M75.51 Bursitis of right shoulder (principal); E78.00 Pure hypercholesterolemia, unspecified; I10 Essential (primary) hypertension; F17.210 Nicotine dependence, cigarettes, uncomplicated
CPT/HCPCS: 73030; 96372; 99283; J1885